=== PATIENT | male | born 1950 | race Caucasian/White ===

== ENCOUNTER → 2019-02-07 | Outpatient (REF) | payer OTHER | LOC: M LAB REF 16:21 | PROVIDERS: ATTEND Surgery | DX: D48.5 Neoplasm of uncertain behavior of skin (principal) ==

== ENCOUNTER 2022-03-25 08:30 | Day surgery (SDC) | payer MEDICARE ==
[~2022-03-25] VITALS: Ht 182.9 cm; Wt 85.7 kg
[~2022-03-25 08:30] MED LIST: B-12100010 PO; CelecoXIB 400 MG CAP PO ONE; ECHI1CAP2 PO; ECOT81TA5 PO; FISH1000 PO; VITA100065 PO; VITA100093 PO; VITMTA PO; ceFAZolin SOD 2 GM in IV 1 EA IV ONE
[2022-03-25] MEDS ORDERED: LR 1,000 ML IV SCH (09:00)
[2022-03-25] MEDS ORDERED: LIDOCAINE 2% 100MG/5ML SDV (FOR ANES.) As Ordered ONE (09:41)
[2022-03-25] MEDS ORDERED: fentaNYL 100 MCG/2 ML INJECTION As Ordered ONE (09:41)
[2022-03-25] MEDS ORDERED: KETOROLAC 60MG 2ML VIAL As Ordered ONE (09:41)
[2022-03-25] MEDS ORDERED: propofoL 200 MG/20 ML VIAL As Ordered ONE (09:41)
[2022-03-25] MEDS ORDERED: MIDAZOLAM INJ 2MG/2ML VIAL (J2250 PER 1MG) As Ordered ONE (09:41)
[2022-03-25] MEDS ORDERED: LIDOCAINE 1% SDV 30ML VIAL As Ordered ONE (10:11)
[2022-03-25] MEDS ORDERED: BUPIVACAINE HCL 0.25% 30ML VIAL As Ordered ONE (10:11)
[2022-03-25 11:25] VITALS: BP 126/77
== END 2022-03-25 11:47 | disposition home or self-care (01) ==
LOC: M SDC 08:30
PROVIDERS: ATTEND Surgery
DX: D17.1 Benign lipomatous neoplasm of skin and subcutaneous tissue of trunk (principal)
CPT/HCPCS: 23073; 88304; J0690; J1885; J2250; J3010